=== PATIENT | male | born 1950 | race Caucasian/White ===

== ENCOUNTER → 2017-08-05 | Outpatient (CLI) | payer MEDICARE ==
[2017-08-08 21:43] LABS: Large VLDL Particle Number,NMR <1.5 nmol/L (<=2.7)
== END | disposition home or self-care (01) ==
LOC: LABWHC1 10:24
PROVIDERS: ATTEND Internal Medicine Cardiovascular Disease
DX: I25.10 Atherosclerotic heart disease of native coronary artery without angina pectoris (principal)
CPT/HCPCS: 36415; 83704

== ENCOUNTER → 2019-02-02 | Outpatient (CLI) | payer MEDICARE ==
[2019-02-02 18:16] LABS: ALT 23 U/L (10-49); AST 26 U/L (14-35); Chol/HDL Ratio 2.72; Cholesterol 128 mg/dL (0-200); Triglycerides <50.0 mg/dL (0.0-149.0)
== END | disposition home or self-care (01) ==
LOC: LABWHC1 08:19
PROVIDERS: ATTEND Internal Medicine Cardiovascular Disease
DX: E78.5 Hyperlipidemia, unspecified (principal); I25.10 Atherosclerotic heart disease of native coronary artery without angina pectoris
CPT/HCPCS: 36415; 80061; 84450; 84460

== ENCOUNTER → 2019-12-30 | Outpatient (CLI) | payer MEDICARE ==
[2019-12-30 10:41] LABS: Albumin 4.4 g/dL (3.80-4.90); Albumin/Globulin Ratio 2.93 (1.60-3.17); Bilirubin, Conjugated 0.2 mg/dL (0.20-0.40); Bilirubin,Unconjugated 0.4 mg/dL; Chol/HDL Ratio 2.82; Globulin 1.5 g/dL (1.6-3.3); LDL Cholesterol,Calculated 67.8 mg/dL (0.0-131.0); Total Bilirubin 0.6 mg/dL (0.2-1.2); Total Protein 5.9 g/dL (6.2-8.2); VLDL Calculation 14.2 mg/dL (5.00-40.00)
== END | disposition home or self-care (01) ==
LOC: LABWHC1 07:26
PROVIDERS: ATTEND Internal Medicine Cardiovascular Disease
DX: I25.10 Atherosclerotic heart disease of native coronary artery without angina pectoris (principal); E78.5 Hyperlipidemia, unspecified
CPT/HCPCS: 36415; 80061; 80076

== ENCOUNTER → 2020-07-03 | Outpatient (CLI) | payer MEDICARE ==
[2020-07-03 14:23] LABS: Albumin 4.5 g/dL (3.80-4.90); Albumin/Globulin Ratio 2.81 (1.60-3.17); Bilirubin, Conjugated 0.2 mg/dL (0.20-0.40); Bilirubin,Unconjugated 0.4 mg/dL; Chol/HDL Ratio 2.77; Globulin 1.6 g/dL (1.6-3.3); LDL Cholesterol,Calculated 64.4 mg/dL (0.0-131.0); Total Bilirubin 0.6 mg/dL (0.2-1.2); Total Protein 6.1 g/dL (6.2-8.2); VLDL Calculation 11.6 mg/dL (5.00-40.00)
== END | disposition home or self-care (01) ==
LOC: LABWHC1 07:16
PROVIDERS: ATTEND Internal Medicine Cardiovascular Disease
DX: I25.2 Old myocardial infarction (principal); E78.2 Mixed hyperlipidemia; I25.10 Atherosclerotic heart disease of native coronary artery without angina pectoris
CPT/HCPCS: 36415; 80061; 80076

== ENCOUNTER → 2022-01-10 | Outpatient (CLI) | payer MEDICARE ==
[2022-01-10 10:27] LABS: ALT 28 U/L (10-49); AST 26 U/L (14-35); Chol/HDL Ratio 2.82 Ratio; LDL Cholesterol,Calculated 75.7 mg/dL (0.0-131.0); VLDL Calculation 12.74 mg/dL (5.00-40.00)
== END | disposition home or self-care (01) ==
LOC: LABWHC1 07:06
PROVIDERS: ATTEND Internal Medicine Interventional Cardiology
DX: E78.2 Mixed hyperlipidemia (principal)
CPT/HCPCS: 36415; 80061; 84450; 84460

== ENCOUNTER 2022-11-09 00:49 | Observation (INO) | payer MEDICARE ==
[2022-11-09 01:34] LABS: Basophils % (A) 1 %; Eosinophils # (A) 0.3 k/uL (0-0.7); Eosinophils % (A) 4 %; HGB 16.1 gm/dL (13.0-17.5); Lymphocytes # (A) 2.9 k/uL (1.0-4.8); Lymphocytes % (A) 32 %; MCH 31.3 pg (25.0-35.0); MCHC 32.9 g/dL (31.0-37.0); MCV 95.2 fL (80.0-100.0); Mean Platelet Volume 7.7; Monocytes # (A) 0.7 k/uL (0-1.0); Monocytes % (A) 8 %; Neutrophils # (A) 4.9 k/uL (1.3-7.7); Neutrophils % (A) 53 %; Platelet Count 177 k/uL (150-450); RBC 5.15 m/uL (4.30-5.90); RDW 13.6 % (11.5-15.5); WBC 9.2 k/uL (3.8-10.6)
[2022-11-09 01:43] LABS: ALT 20 U/L (4-49); AST 29 U/L (17-59); African American GFR (CKD) 81 (>60 ml/min/1.73 sqM); Albumin 4.1 g/dL (3.5-5.0); Alkaline Phosphatase 98 U/L (38-126); Anion Gap 6 mmol/L; Blood Urea Nitrogen 13 mg/dL (9-20); Calcium 8.8 mg/dL (8.4-10.2); Carbon Dioxide 31 mmol/L (22-30); Chloride 102 mmol/L (98-107); Glucose 96 mg/dL (74-99); Magnesium 1.9 mg/dL (1.6-2.3); Non-African American GFR(CKD) 70 (>60 ml/min/1.73 sqM); Potassium 4.2 mmol/L (3.5-5.1); Sodium 139 mmol/L (137-145); Total Bilirubin 0.6 mg/dL (0.2-1.3); Total Protein 6.6 g/dL (6.3-8.2)
[2022-11-09 02:11] LABS: Prothrombin Time 10.4 sec (9.0-12.0)
--- NOTE | 2022-11-09 02:21 | ED ---
Chest Pain HPI - General Chief Complaint: Chest Pain Stated Complaint: Chest pain Time Seen by Provider: 11/09/22 01:26 Source: patient Mode of arrival: ambulatory Limitations: no limitations - History of Present Illness Initial Comments: 72-year-old male with past medical history of coronary artery disease who presents to the emergency department reporting left-sided chest pain and arm pain. States that the pain started around 11 PM. Describes as a pressure sensation. States that his pain felt similar to when he had his heart attack in 2015. He did not take anything for the pain but proceeded immediately to the hospital. 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 Pain lasted for hour before it resolved. Denies fevers chills or cough. No lower extremity swelling. No other alleviating, precipitating or modifying factors - Related Data Home Medications Medication Instructions Recorded Confirmed lisinopriL [Zestril] 10 mg PO HS 11/09/22 11/09/22 Previous Rx's Medication Instructions Recorded Aspirin 81 mg PO DAILY chew 08/22/14 Atorvastatin [Lipitor] 80 mg PO HS #30 tab 08/22/14 Metoprolol Tartrate [Lopressor] 25 mg PO BID #60 tab 08/22/14 Allergies Allergy/AdvReac Type Severity Reaction Status Date / Time No Known Allergies Allergy Verified 11/09/22 00:52 Review of Systems ROS Statement: Those systems with pertinent positive or pertinent negative responses have been documented in the HPI. ROS Other: All systems not noted in ROS Statement are negative. Past Medical History Past Medical History: Asthma, COPD, Myocardial Infarction (ID), Pneumonia Additional Past Medical History / Comment(s): 08/19/14 Pt presented to [facility] ER with L lateral upper arm pain with some L sided chest pain that radiated up to L shoulder at times. Pain was worse last nite but pt was in [place] travelling back to [place]. 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 Admitting diagnosis of STEMI. Other HX: low blood sugar. Last Myocardial Infarction Date:: 08/18/14 History of Any Multi-Drug Resistant Organisms: None Reported Past Surgical History: Heart Catheterization With Stent Additional Past Surgical History / Comment(s): 08/19/14 Cardiac cath with stent to mid RCA. Past Anesthesia/Blood Transfusion Reactions: No Reported Reaction Additional Past Anesthesia/Blood Transfusion Reaction / Comment(s): Pt has never had general anesthesia. Date of Last Stent Placement:: 04/21/14 Past Psychological History: No Psychological Hx Reported Smoking Status: Current every day smoker Past Alcohol Use History: Rare Past Drug Use History: None Reported - Past Family History Father Family Medical History: Unable to Obtain Additional Family Medical History / Comment(s): Pt did not know his father. Mother Family Medical History: Unable to Obtain Additional Family Medical History / Comment(s): Pt states his mother when he was 18 yrs old. He does not know any of her health hx or what caused her . Brother(s) Family Medical History: Coronary Artery Disease (CAD) Additional Family Medical History / Comment(s): Pt's youngest brother has had a ID and stenting. General Exam Limitations: no limitations General appearance: alert, in no apparent distress Head exam: Present: atraumatic, normocephalic, normal inspection Eye exam: Present: normal appearance, PERRL, EOMI. Absent: scleral icterus, conjunctival injection, periorbital swelling ENT exam: Present: normal exam, mucous membranes moist Neck exam: Present: normal inspection. Absent: tenderness, meningismus, lymphadenopathy Respiratory exam: Present: normal lung sounds bilaterally. Absent: respiratory distress, wheezes, rales, rhonchi, stridor Cardiovascular Exam: Present: regular rate, normal rhythm, normal heart sounds. Absent: systolic murmur, diastolic murmur, rubs, gallop, clicks GI/Abdominal exam: Present: soft, normal bowel sounds. Absent: distended, tenderness, guarding, rebound, rigid Extremities exam: Present: normal inspection, full ROM, normal capillary refill. Absent: tenderness, pedal edema, joint swelling, calf tenderness Back exam: Present: normal inspection Neurological exam: Present: alert, oriented X3, CN II-XII intact Psychiatric exam: Present: normal affect, normal mood Skin exam: Present: warm, dry, intact, normal color. Absent: rash Course Vital Signs 11/09/22 11/09/22 11/09/22 00:52 03:37 06:00 Temperature 98.1 F Pulse Rate 76 74 62 Respiratory 18 16 16 Rate Blood Pressure 141/84 114/71 120/69 O2 Sat by Pulse 98 99 92 L Oximetry Chest Pain MDM - MDM Was pt. sent in by a medical professional or institution (RAUL Ricardo, ADULT CROSSING GUARD, urgent care, hospital, or halfway...) When possible be specific @ -No Did you speak to anyone other than the patient for history (EMS, parent, family, police, friend...)? What history was obtained from this source @ -I spoke with the patient's daughter Did you review nursing and triage notes (agree or disagree)? Why? @ -I reviewed and agree with nursing and triage notes Were old charts reviewed (outside hosp., previous admission, EMS record, old EKG, old radiological studies, urgent care reports/EKG's, halfway records)? Report findings @ -I reviewed the patient's charts from 2014 when he had his heart attack Differential Diagnosis (chest pain, altered mental status, abdominal pain women, abdominal pain men, vaginal bleeding, weakness, fever, dyspnea, syncope, headache, dizziness, GI bleed, back pain, seizure, CVA, palpatations, mental health, musculoskeletal)? @ -Differential Chest Pain: Stable Angina, Unstable Angina, STEMI, NSTEMI Aortic Dissection, Pneumothorax, Musculoskeletal, Esophageal Spasm GERD, Cholecystitis, Pancreatitis, Zoster, this is not meant to be an all-inclusive list. EKG interpreted by me (3pts min.). @ -Yes and demonstrates sinus rhythm with a rate of 73. WA interval 181. QRS 11. QTC of 408. No acute ST segment elevations or depressions X-rays interpreted by me (1pt min.). @ -Yes and demonstrates no acute process CT interpreted by me (1pt min.). @ -None done U/S interpreted by me (1pt. min.). @ -None done What testing was considered but not performed or refused? (CT, X-rays, U/S, labs)? Why? @ -None What meds were considered but not given or refused? Why? @ -None Did you discuss the management of the patient with other professionals (professionals i.e. RAUL Ricardo, ADULT CROSSING GUARD, lab, RT, psych nurse, protective services social worker, private duty lpn, teacher, chief investment officer, dependency case manager)? Give summary @ -Spoke with Patricia who agreed to admit the patient Was smoking cessation discussed for >3mins.? @ -No Was critical care preformed (if so, how long)? @ -No Were there social determinants of health that impacted care today? How? (Homelessness, low income, unemployed, alcoholism, drug addiction, transportation, low edu. Level, literacy, decrease access to med. care, penitentiary, rehab)? @ -No Was there de-escalation of care discussed even if they declined (Discuss DNR or withdrawal of care, Hospice)? DNR status @ -No What co-morbidities impacted this encounter? (DM, HTN, Smoking, COPD, CAD, Cancer, CVA, ARF, Chemo, Hep., AIDS, mental health diagnosis, sleep apnea, morbid obesity)? @ -Coronary artery disease Was patient admitted / discharged? Hospital course, mention meds given and route, prescriptions, significant lab abnormalities, going to OR and other pertinent info. @ -Upon arrival patient was placed into room 5. Thorough history and physical exam was performed. Laboratory studies are conducted. Chest x-ray was performed. 12-lead EKG was completed. Troponin negative. 12-lead EKG unremarkable. Recommended admission due to history of coronary disease for which the patient was agreeable. Spoke with Patricia from [facility] who agreed to admit the patient Undiagnosed new problem with uncertain prognosis? @ -Yes Drug Therapy requiring intensive monitoring for toxicity (Heparin, Nitro, Insulin, Cardizem)? @ -No Were any procedures done? @ -No Diagnosis/symptom? @ -Acute chest pain, possible ACS Acute, or Chronic, or Acute on Chronic? @ -Acute Uncomplicated (without systemic symptoms) or Complicated (systemic symptoms)? @ -Complicated Side effects of treatment? @ -No Exacerbation, Progression, or Severe Exacerbation? @ -No Poses a threat to life or bodily function? How? (Chest pain, USA, ID, pneumonia, PE, COPD, DKA, ARF, appy, cholecystitis, CVA, Diverticulitis, Homicidal, Suicidal, threat to staff... and all critical care pts) @ -Yes patient has chest pain which may indicate acute coronary event Disposition Clinical Impression: Chest pain Disposition: ADMITTED IP TO THIS [facility] Condition: Serious Is patient prescribed a controlled substance at d/c from ED?: No Time of Disposition: :34 Decision to Admit Reason: Admit from EC Decision Date: 11/09/22 Decision Time: :34
--- NOTE | 2022-11-09 02:35 | XR ---
EXAM: XR Chest, 2 Views CLINICAL HISTORY: ITS.REASON XR Reason: Chest Pain TECHNIQUE: Frontal and lateral views of the chest. COMPARISON: No relevant prior studies available. FINDINGS: Lungs: Unremarkable. No consolidation. Pleural space: Unremarkable. No pneumothorax. No pleural effusions. Heart: Unremarkable. No cardiomegaly. Mediastinum: Unremarkable. Bones/joints: No acute osseous abnormalities. IMPRESSION: Normal chest.
[2022-11-09] MEDS ORDERED: ASPIRIN 81 MG PO STA (03:21)
[2022-11-09] MEDS ORDERED: NALOXONE 0.4 MG/ML 1 ML VIAL IV PRN (03:35)
[2022-11-09 03:38] VITALS: RESP 16
[2022-11-09] MEDS ORDERED: AMINOPHYLLINE 500 MG/20 ML VIAL IV PRN (08:42)
[2022-11-09] MEDS ORDERED: REGADENOSON 0.4 MG/5 ML SYRINGE IV PRN (08:42)
[2022-11-09] MEDS ORDERED: CAFFEINE CITRATE 60 MG/3 ML VIAL IV PRN (08:42)
[2022-11-09] MEDS ORDERED: ASPIRIN 81 MG PO SCH (09:00)
[2022-11-09] MEDS ORDERED: METOPROLOL TARTRATE 25 MG TAB PO SCH (09:00)
--- NOTE | 2022-11-09 10:19 | P.CRDCN ---
History of Present Illness History of present illness: HISTORY OF PRESENT ILLNESS: This is a 72-year-old male with a past medical history significant for coronary artery disease with previous stenting of the RCA, hypertension, hyperlipidemia, COPD, nicotine dependence. Patient follows in the office with Dr. Monroy. We have been asked to see the patient in consultation for chest pain. Patient examined at the bedside. Patient states yesterday he woke up around 11:00 and he was having pain in his left arm. He states he was not having any chest pain at that time. He also denies having any chest pain at the time of examination. He states the pain in his left arm was worse with movement but states the pain is now gone. He states the pain was not worse with deep inspiration. He reports having any shortness of breath. He does report a cough which she states is his baseline due to his COPD. He is a current serum smoker and smokes at least one pack per day. He states his symptoms are somewhat similar to when he had his stenting in the past but at that time he had chest pain and this time he denies having any chest pain or discomfort. * EKG reveals sinus mechanism with no signs of acute ischemia. * Chest xray negative for acute process * Laboratory data: WBC 9.2. Hemoglobin 16.1. Platelet count 177. Sodium 139. Potassium 4.2. Troponin negative 2. * Current home cardiac medications include aspirin 81 mg daily, Lipitor 80 mg at night, metoprolol tartrate 25 mg twice a day, and lisinopril 10 mg at night * Most recent echocardiogram obtained in August 2014 revealed ejection fraction 35- 40%, trace to mild MR, trace TR * Cardiac catheterization history: August 2014 with stenting of the RCA * Patient underwent Lexiscan stress testing n December 2020 which was negative for inducible ischemia REVIEW OF SYSTEMS: At the time of my exam: CONSTITUTIONAL: Denies fever or chills. HEENT: Denies blurred vision, vision changes, or eye pain. Denies hemoptysis CARDIOVASCULAR: Denies chest pain. Denies orthopnea. Denies PND. Denies palpitations RESPIRATORY: Denies shortness of breath. GASTROINTESTINAL: Denies abdominal pain. Denies nausea or vomiting. HEMATOLOGIC: Denies bleeding disorders. GENITOURINARY: Denies any blood in urine. SKIN: Denies pruitis. Denies rash. PHYSICAL EXAM: VITAL SIGNS: Reviewed. GENERAL: Well-developed in no acute distress. HEENT: Head is normocephalic. Pupils are equal, round. Sclerae anicteric. Mucous membranes of the mouth are moist. Neck supple. No JVD or thyromegaly LUNGS: Respirations even and unlabored. Lungs diminished with expiratory wheezing throughout, greater in upper lobes HEART: Regular rate and rhythm. S1 and S2 heard. ABDOMEN: Soft. Nondistended. Nontender. EXTREMITIES: Normal range of motion. No clubbing or cyanosis. Peripheral pulses intact. No lower extremity edema NEUROLOGIC: Awake and alert. Oriented x 3. ASSESSMENT: Left arm pain Coronary artery disease with previous stenting of the RCA, 2014 History of ischemic cardiomyopathy, ejection fraction 35-40% in 2014, with recovered EF most recent 50% in 2020 Hypertension Hyperlipidemia COPD Nicotine dependence, patient smokes 1 pack per day PLAN: An acute coronary event has been ruled out Obtain 2-D echo to assess cardiac structure and function Resume home cardiac medications Smoking cessation recommended Patient to undergo Lexiscan stress test today Further recommendations pending patient's course Nurse practitioner note has been reviewed by physician. Signing provider agrees with the documented findings, assessment, and plan of care. Past Medical History Past Medical History: Asthma, COPD, Myocardial Infarction (NC), Pneumonia Additional Past Medical History / Comment(s): 08/19/14 Pt presented to [facility] ER with L lateral upper arm pain with some L sided chest pain that radiated up to L shoulder at times. Pain was worse last nite but pt was in [place] travelling back to [place]. 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 Admitting diagnosis of STEMI. Other HX: low blood sugar. Last Myocardial Infarction Date:: 08/18/14 History of Any Multi-Drug Resistant Organisms: None Reported Past Surgical History: Heart Catheterization With Stent Additional Past Surgical History / Comment(s): 08/19/14 Cardiac cath with stent to mid RCA. Past Anesthesia/Blood Transfusion Reactions: No Reported Reaction Additional Past Anesthesia/Blood Transfusion Reaction / Comment(s): Pt has never had general anesthesia. Date of Last Stent Placement:: 04/21/14 Past Psychological History: No Psychological Hx Reported Smoking Status: Current every day smoker Past Alcohol Use History: Rare Past Drug Use History: None Reported - Past Family History Father Family Medical History: Unable to Obtain Additional Family Medical History / Comment(s): Pt did not know his father. Mother Family Medical History: Unable to Obtain Additional Family Medical History / Comment(s): Pt states his mother when he was 18 yrs old. He does not know any of her health hx or what caused her . Brother(s) Family Medical History: Coronary Artery Disease (CAD) Additional Family Medical History / Comment(s): Pt's youngest brother has had a NC and stenting. Medications and Allergies Home Medications Medication Instructions Recorded Confirmed Type Aspirin 81 mg PO DAILY chew 08/22/14 11/09/22 Rx Atorvastatin [Lipitor] 80 mg PO HS #30 tab 08/22/14 11/09/22 Rx Metoprolol Tartrate [Lopressor] 25 mg PO BID #60 tab 08/22/14 11/09/22 Rx lisinopriL [Zestril] 10 mg PO HS 11/09/22 11/09/22 History Allergies Allergy/AdvReac Type Severity Reaction Status Date / Time No Known Allergies Allergy Verified 11/09/22 00:52 Physical Exam Vitals: Vital Signs Temp Pulse Resp BP Pulse Ox 11/09/22 06:00 62 16 120/69 92 L 11/09/22 03:37 74 16 114/71 99 11/09/22 00:52 98.1 F 76 18 141/84 98 Intake and Output 11/08/22 11/09/22 11/09/22 22:59 06:59 14:59 Other: Weight 81.647 kg Results 11/09/22 01:19 11/09/22 01:19 Cardiac Enzymes 11/09/22 11/09/22 11/09/22 Range/Units 01:19 01:19 05:20 AST 29 (17-59) U/L Troponin I <0.012 <0.012 (0.000-0.034) ng/mL Coagulation 11/09/22 Range/Units 01:19 PT 10.4 (9.0-12.0) sec APTT 24.0 (22.0-30.0) sec CBC 11/09/22 Range/Units 01:19 WBC 9.2 (3.8-10.6) k/uL RBC 5.15 (4.30-5.90) m/uL Hgb 16.1 (13.0-17.5) gm/dL Hct 49.0 (39.0-53.0) % Plt Count 177 (150-450) k/uL Comprehensive Metabolic Panel 11/09/22 Range/Units 01:19 Sodium 139 (137-145) mmol/L Potassium 4.2 (3.5-5.1) mmol/L Chloride 102 (98-107) mmol/L Carbon Dioxide 31 H (22-30) mmol/L BUN 13 (9-20) mg/dL Creatinine 1.07 (0.66-1.25) mg/dL Glucose 96 (74-99) mg/dL Calcium 8.8 (8.4-10.2) mg/dL AST 29 (17-59) U/L ALT 20 (4-49) U/L Alkaline Phosphatase 98 (38-126) U/L Total Protein 6.6 (6.3-8.2) g/dL Albumin 4.1 (3.5-5.0) g/dL Current Medications Generic Name Dose Route Start Last Admin Trade Name Freq PRN Reason Stop Dose Admin Naloxone HCl 0.2 mg 11/09/22 03:35 Naloxone 0.4 Mg/Ml 1 Ml Vial IV Q2M PRN Opioid Reversal Intake and Output 11/08/22 11/09/22 11/09/22 22:59 06:59 14:59 Other: Weight 81.647 kg 11/09/22 01:19 11/09/22 01:19
--- NOTE | 2022-11-09 12:31 | NM ---
EXAMINATION TYPE: NM stress lexiscan cardiolite DATE OF EXAM: 11/09/2022 COMPARISON: NONE CLINICAL INDICATION: Male, 72 years old with history of CP; TECHNIQUE: After the intravenous administration of 10.2 mCi Tc 99m Sestamibi - Cardiolite resting SP ECT images acquired 60 minutes post injection. The patient received 0.4mg Lexiscan, 25.3 mCi Tc 99m Sestamibi - Stress images obtained [address] injection FINDINGS: Review of stress and rest SPECT images demonstrates small fixed defect involving the apex and inferio r wall of the myocardium somewhat which may be artifactual. Correlate for history of remote ischemia. Gated analysis shows normal wall motion with an estimated left ventricular ejection fraction of 55 %. IMPRESSION: No scintigraphic evidence for reversible ischemia. See above.
--- NOTE | 2022-11-09 12:32 | CA ---
Lexiscan Nuclear Stress Test Report Name: Kiran Paulson Exam Date: 11/09/2022 11:03 Exam Location: [facility] Stress Ht (in): 66 Wt (lb): 180 BSA: 1.91 Ordering Phys: Sally Joe Referring Phys: MELO, Technologist: Krunal Antoine Age: 72 Gender: M : 1950 Procedure CPT: Indications: Reflex order-Stress test ICD-10 Codes: Patient History: CHEST PAIN, HTN, ELEVATED CHOLESTEROL LEVELS, FAMILY HX OF HEART DISEASE, CURRENT SMOKER 1 PPD X 55 YRS, PRIOR CATH WITH ONE STENT, COPD Medications: Meds past 24 hrs: Pretest Chest Pain: STRESS TEST Lexiscan Protocol Exercise Duration (min:sec): 02:[address] Depressions (mm): Angina Score: Crockett Score: Resting HR (bpm): 63 Peak HR (bpm): 93 Resting BP (mmHg): 136 / 81 Peak BP (mmHg): 150 / 82 MPHR: 149 Target HR: 127 % MPHR: 62 METS: 1.0 Total Dose: Peak Dose: Atropine: Double Product: 29730 BP Response: Stress Termination: INFUSION COMPLETE Stress Symptoms: NO SYMPTOMS Stress Summary: ECG ANALYSIS Resting ECG: Sinus rhythm. Normal conduction. No arrhythmias. Normal repolarization. Stress ECG: No ECG changes from baseline with Lexiscan infusion. CONCLUSIONS No ECG evidence of ischemia with Lexiscan infusion. Nuclear test results to follow. Dr. Venita Corona MD (Electronically Signed) Final Date: 09 November 2022 12:31
[2022-11-09 12:42] VITALS: BP 125/72; PULSE 64; TEMP 98.1
--- NOTE | 2022-11-09 15:42 | P.HPIM ---
History of Present Illness H&P Date: 11/09/22 This is a 72-year-old male with medical history of asthma, COPD, myocardial infarction with prior cardiac stenting most recently in 2014. Patient is a current every day smoker at least one pack per day for the last 60 years. He presents to hospital with complaints of left-sided arm pain that starts from 11 PM in the evening described as a pressure-like sensation ER for further evaluation pain is currently resolved at this time. States the pain awoke him from sleep. Patient has no associated symptoms, no shortness of breath, no chest pain, no nausea/vomiting or diarrrhea. He does report that this pain feels similar to the SC he had prior. Chest x-ray was completed which shows no acute findings. EKG reveals normal sinus rhythm with no ST or T-wave changes. Heart rate is 73. Troponin level has been negative 2 blood count is completely unremarkable electrolytes are within normal limits. Patient is admitted to the hospital under medicine with a consultation placed to cardiology services. Patient is scheduled to undergo a Lexiscan stress test today. Patient does report he was out weeding his garden earlier in the day and usually he doesn't do that he does have some discomfort with full rotation of the left shoulder. REVIEW OF SYSTEMS: CONSTITUTIONAL: No fever, no malaise, no fatigue. HEENT: No recent visual problems or hearing problems. Denied any sore throat. CARDIOVASCULAR: No chest pain, orthopnea, PND, no palpitations, no syncope. PULMONARY: No shortness of breath, no cough, no hemoptysis. GASTROINTESTINAL: No diarrhea, no nausea, no vomiting, no abdominal pain. NEUROLOGICAL: No headaches, no weakness, no numbness. HEMATOLOGICAL: Denies any bleeding or petechiae. GENITOURINARY: Denies any burning micturition, frequency, or urgency. MUSCULOSKELETAL/RHEUMATOLOGICAL: Denies any joint pain, swelling, or any muscle pain. ENDOCRINE: Denies any polyuria or polydipsia. The rest of the 14-point review of systems is negative. PHYSICAL EXAMINATION: GENERAL: The patient is alert and oriented x3, not in any acute distress. Well developed, well nourished. HEENT: Pupils are round and equally reacting to light. EOMI. No scleral icterus. No conjunctival pallor. Normocephalic, atraumatic. No pharyngeal erythema. No thyromegaly. CARDIOVASCULAR: S1 and S2 present. No murmurs, rubs, or gallops. PULMONARY: Chest is clear to auscultation, no wheezing or crackles. ABDOMEN: Soft, nontender, nondistended, normoactive bowel sounds. No palpable organomegaly. MUSCULOSKELETAL: No joint swelling or deformity. EXTREMITIES: No cyanosis, clubbing, or pedal edema. NEUROLOGICAL: Gross neurological examination did not reveal any focal deficits. SKIN: No rashes. Assessment and plan Left-sided arm pain and possibly chest pain atypical acute coronary syndrome has ruled out patient had a negative Lexiscan chest test shows no signs of reversible ischemia. This is likely musculoskeletal in nature as patient does have some limited range of motion mild in nature likely be self limiting and recommending to just rest the arm for a couple days. History of myocardial infarction with prior cardiac stenting back in 2014 History of COPD and chronic nicotine use patient is a one pack per day smoker History of asthma there is no acute exacerbation GI prophylaxis Full code Patient is discharged home he has been cleared by cardiology recommending to follow up in the office with his usual emergency vehicle technician 1-2 weeks and follow-up with PCP 1-2 days. He was counseled extensively on smoking cessation patient this time does not wish for any further education/denies nicotine patch. The impression and plan of care has been dictated by Bernadette Andres, Nurse Practitioner as directed. Dr. Dmitry MD I have performed a history and physical examination and medical decision making of this patient, discussed the same with the dictator, and agree with the dictators assessment and plan as written, documented as a scribe. Based on total visit time, I have performed more than 50% of this visit. Past Medical History Past Medical History: Asthma, COPD, Myocardial Infarction (SC), Pneumonia Additional Past Medical History / Comment(s): 08/19/14 Pt presented to [facility] ER with L lateral upper arm pain with some L sided chest pain that radiated up to L shoulder at times. Pain was worse last nite but pt was in [place] travelling back to [place]. 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 Admitting diagnosis of STEMI. Other HX: low blood sugar. Last Myocardial Infarction Date:: 08/18/14 History of Any Multi-Drug Resistant Organisms: None Reported Past Surgical History: Heart Catheterization With Stent Additional Past Surgical History / Comment(s): 08/19/14 Cardiac cath with stent to mid RCA. Past Anesthesia/Blood Transfusion Reactions: No Reported Reaction Additional Past Anesthesia/Blood Transfusion Reaction / Comment(s): Pt has never had general anesthesia. Date of Last Stent Placement:: 04/21/14 Past Psychological History: No Psychological Hx Reported Smoking Status: Current every day smoker Past Alcohol Use History: Rare Past Drug Use History: None Reported - Past Family History Father Family Medical History: Unable to Obtain Additional Family Medical History / Comment(s): Pt did not know his father. Mother Family Medical History: Unable to Obtain Additional Family Medical History / Comment(s): Pt states his mother when he was 18 yrs old. He does not know any of her health hx or what caused her . Brother(s) Family Medical History: Coronary Artery Disease (CAD) Additional Family Medical History / Comment(s): Pt's youngest brother has had a SC and stenting. Medications and Allergies Home Medications Medication Instructions Recorded Confirmed Type Aspirin 81 mg PO DAILY chew 08/22/14 11/09/22 Rx Atorvastatin [Lipitor] 80 mg PO HS #30 tab 08/22/14 11/09/22 Rx Metoprolol Tartrate [Lopressor] 25 mg PO BID #60 tab 08/22/14 11/09/22 Rx Albuterol Inhaler [Ventolin Hfa 1 - 2 puff INHALATION Q6H PRN #1 11/09/22 Rx Inhaler] each lisinopriL [Zestril] 10 mg PO HS 11/09/22 11/09/22 History Allergies Allergy/AdvReac Type Severity Reaction Status Date / Time No Known Allergies Allergy Verified 11/09/22 00:52 Physical Exam Vitals: Vital Signs Temp Pulse Pulse Resp BP BP Pulse Ox 11/09/22 07:00 97.8 F 83 16 140/75 93 L 11/09/22 06:00 62 16 120/69 92 L 11/09/22 03:37 74 16 114/71 99 11/09/22 00:52 98.1 F 76 18 141/84 98 Intake and Output 11/08/22 11/09/22 11/09/22 22:59 06:59 14:59 Other: Weight 81.647 kg Results CBC & Chem 7: 11/09/22 01:19 11/09/22 01:19 Labs: Abnormal Lab Results - Last 24 Hours (Table) 11/09/22 Range/Units 01:19 Carbon Dioxide 31 H (22-30) mmol/L Assessment and Plan Time with Patient: Less than 30
--- NOTE | 2022-11-09 15:45 | P.DS ---
Providers Date of admission: 11/09/22 03:35 Attending physician: Isa Foster Consults: 11/09/22 03:35 Consult Physician Urgent Consulting Provider: [facility] Consult Reason/Comments: acute chest pain, hx ascad Do you want consulting provider notified?: Yes Primary care physician: Rosalio Grajeda Hospital Course: Final Diagnosis Left-sided arm pain and possibly chest pain atypical acute coronary syndrome has ruled out patient had a negative Lexiscan chest test shows no signs of reversible ischemia. This is likely musculoskeletal in nature as patient does have some limited range of motion mild in nature likely be self limiting and recommending to just rest the arm for a couple days. History of myocardial infarction with prior cardiac stenting back in 2014 History of COPD and chronic nicotine use patient is a one pack per day smoker History of asthma there is no acute exacerbation Full Code Discharge Disposition Patient is stable for discharge home recommending to see his usual room cleaner in 1-2 weeks and also to follow up with his PCP 1-[address] Hui milian in the office. He is sent in albuterol inhaler as needed use for his COPD for any shots of breath or wheezing and he is counseled extensively on smoking cessation. Hospital Course This is a 72-year-old male with medical history of asthma, COPD, myocardial infarction with prior cardiac stenting most recently in 2014. Patient is a current every day smoker at least one pack per day for the last 60 years. He presents to hospital with complaints of left-sided arm pain that starts from 11 PM in the evening described as a pressure-like sensation ER for further evaluation pain is currently resolved at this time. States the pain awoke him from sleep. Patient has no associated symptoms, no shortness of breath, no chest pain, no nausea/vomiting or diarrrhea. He does report that this pain feels similar to the DC he had prior. Chest x-ray was completed which shows no acute findings. EKG reveals normal sinus rhythm with no ST or T-wave changes. Heart rate is 73. Troponin level has been negative 2 blood count is completely unremarkable electrolytes are within normal limits. Patient is admitted to the hospital under medicine with a consultation placed to cardiology services. Patient does report he was out weeding his garden earlier in the day and usually he doesn't do that he does have some discomfort with full rotation of the left shoulder. Patient underwent Lexiscan stress test which was negative for any signs of reversible ischemia and has been cleared by cardiology for discharge she is currently symptom-free at this time and denies any chest pain. His lungs are clear, S1-S2 is auscultated, abdomen is soft and nontender focal neurological exam is negative. Please see medication reconciliation for a list of current medications. Thank you for allowing us to participate in this patient. The impression and plan of care has been dictated by Bernadette Andres, Nurse Practitioner as directed. Dr. Dmitry MD I have performed a history and physical examination and medical decision making of this patient, discussed the same with the dictator, and agree with the dictators assessment and plan as written, documented as a scribe. Based on total visit time, I have performed more than 50% of this visit. Patient Condition at Discharge: Stable Plan - Discharge Summary New Discharge Prescriptions: New Albuterol Inhaler [Ventolin Hfa Inhaler] 1 - 2 puff INHALATION Q6H PRN #1 each PRN Reason: Shortness Of Breath Or Wheezing Continue Aspirin 81 mg PO DAILY chew Atorvastatin [Lipitor] 80 mg PO HS #30 tab Metoprolol Tartrate [Lopressor] 25 mg PO BID #60 tab lisinopriL [Zestril] 10 mg PO HS Discharge Medication List Aspirin 81 mg PO DAILY chew 08/22/14 [Rx] Atorvastatin [Lipitor] 80 mg PO HS #30 tab 08/22/14 [Rx] Metoprolol Tartrate [Lopressor] 25 mg PO BID #60 tab 08/22/14 [Rx] Albuterol Inhaler [Ventolin Hfa Inhaler] 1 - 2 puff INHALATION Q6H PRN #1 each 11/09/22 [Rx] lisinopriL [Zestril] 10 mg PO HS 11/09/22 [History] Follow up Appointment(s)/Referral(s): Venita Corona MD [STAFF PHYSICIAN] - 1 Week Rosalio Grajeda DO [Primary Care Provider] - 1-2 days Discharge Disposition: HOME SELF-CARE
[2022-11-09] MEDS ORDERED: ATORVASTATIN 80 MG TAB PO SCH (21:00)
[2022-11-09] MEDS ORDERED: lisinopriL 10 MG TAB PO SCH (21:00)
[2022-11-10] MEDS ORDERED: PANTOPRAZOLE 40 MG TABLET PO SCH (07:30)
--- NOTE | 2022-11-10 07:32 | CA ---
Transthoracic Echo Report Name: Kiran Paulson Age: 72 Gender: M : 1950 Exam Date: 11/09/2022 11:31 Exam Location: [facility] Ht (in): 66 Wt (lb): 180 Ordering Physician: Sally Joe Attending/Referring Phys: [id number], [employer] Changer Flor Christina RDCS Procedure CPT: Indications: LV function Cardiac Hx: Technical Quality: Technically difficult study Contrast 1: Lumason Total Dose (mL): 4 Contrast 2: Total Dose (mL): MEASUREMENTS (Male / Female) Normal Values 2D ECHO LV Diastolic Diameter PLAX 4.3 cm 4.2 - 5.9 / 3.9 - 5.3 cm LV Systolic Diameter PLAX 3.0 cm IVS Diastolic Thickness 1.1 cm 0.6 - 1.0 / 0.6 - 0.9 cm LVPW Diastolic Thickness 1.1 cm 0.6 - 1.0 / 0.6 - 0.9 cm LV Relative Wall Thickness 0.5 RV Internal Dim ED PLAX 3.6 cm LA Volume 22.0 cm??? 18 - 58 / 22 - 52 cm??? M-MODE Aortic Root Diameter MM 2.8 cm LA Systolic Diameter MM 3.9 cm LA Ao Ratio MM 1.4 AV Cusp Separation MM 1.6 cm DOPPLER AV Peak Velocity 126.9 cm/s AV Peak Gradient 6.4 mmHg AV Mean Velocity 81.7 cm/s AV Mean Gradient 3.1 mmHg AV Velocity Time Integral 27.1 cm LVOT Peak Velocity 100.4 cm/s LVOT Peak Gradient 4.0 mmHg LVOT Velocity Time Integral 22.1 cm MV Area PHT 4.1 cm??? Mitral E Point Velocity 75.2 cm/s Mitral A Point Velocity 102.5 cm/s Mitral E to A Ratio 0.7 MV Deceleration Time 187.0 ms MV E' Velocity 5.0 cm/s Mitral E to MV E' Ratio 15.0 TR Peak Velocity 261.1 cm/s TR Peak Gradient 27.3 mmHg Right Ventricular Systolic Press 32.1 mmHg FINDINGS Left Ventricle Mildly increased left ventricular wall thickness. Left ventricular cavity size normal. Normal left ventricular systolic function with no obvious regional wall motion abnormalities. Left ventricular ejection fraction is estimated at 55-60 %. Right Ventricle Mild right ventricular dilatation. Right ventricular systolic pressure within normal limits. Right Atrium Normal right atrial size. Left Atrium Normal left atrial size. Mitral Valve Structurally normal mitral valve. No mitral stenosis, or prolapse. Trace mitral regurgitation Aortic Valve No aortic valve stenosis or regurgitation. Aortic valve sclerosis. Tricuspid Valve Structurally normal tricuspid valve. Trace to mild tricuspid regurgitation. Pulmonic Valve Pulmonic valve not well visualized. Pericardium No pericardial effusion.echo free space anterior to the right ventricle likely represents a fat pad. Aorta Normal size aortic root and proximal ascending aorta. CONCLUSIONS 1. Normal left ventricle size and systolic function 2. Trace mitral with trace to mild tricuspid regurgitation Previewed by: Dr. Venita Corona MD (Electronically Signed) Final Date: 10 November 2022 07:31
== END 2022-11-09 16:10 | disposition home or self-care (01) ==
LOC: EC 00:49 → 6NMEDSUR 03:35
PROVIDERS: ADMIT Hospitalist; ATTEND Hospitalist
DX: M79.602 Pain in left arm (principal); I25.10 Atherosclerotic heart disease of native coronary artery without angina pectoris; I25.5 Ischemic cardiomyopathy; E78.5 Hyperlipidemia, unspecified; I07.1 Rheumatic tricuspid insufficiency; I10 Essential (primary) hypertension; J44.9 Chronic obstructive pulmonary disease, unspecified; F17.210 Nicotine dependence, cigarettes, uncomplicated; I25.2 Old myocardial infarction; Z79.82 Long term (current) use of aspirin; Z79.899 Other long term (current) drug therapy; Z95.5 Presence of coronary angioplasty implant and graft; Z87.01 Personal history of pneumonia (recurrent); Z82.49 Family history of ischemic heart disease and other diseases of the circulatory system; Z71.6 Tobacco abuse counseling
CPT/HCPCS: 99285; 36415; 93005; 93017; 93306; 80053; 83735; 84484; 85025; 85610; 85730; 71046; 78452; G0378; A9500; J2785; Q9950

== ENCOUNTER → 2023-07-18 | Outpatient (CLI) | payer MEDICARE ==
[2023-07-18 11:00] LABS: ALT 22 U/L (10-49); AST 23 U/L (14-35); Chol/HDL Ratio 2.83 Ratio; LDL Cholesterol,Calculated 72.7 mg/dL (0.0-131.0); VLDL Calculation 18.54 mg/dL (5.00-40.00)
== END | disposition home or self-care (01) ==
LOC: LABWHC1 07:10
PROVIDERS: ATTEND Internal Medicine Cardiovascular Disease
DX: E78.2 Mixed hyperlipidemia (principal)
CPT/HCPCS: 36415; 80061; 84450; 84460

== ENCOUNTER → 2024-06-24 | Outpatient (CLI) | payer MEDICARE ==
[2024-06-24 15:00] LABS: ALT 31 U/L (10-49); AST 31 U/L (14-35); LDL Cholesterol,Calculated 47.9 mg/dL (0.0-131.0); VLDL Calculation 14.32 mg/dL (5.00-40.00)
== END | disposition home or self-care (01) ==
LOC: LABWHC1 09:41
PROVIDERS: ATTEND Internal Medicine Cardiovascular Disease
DX: E78.2 Mixed hyperlipidemia (principal)
CPT/HCPCS: 36415; 80061; 84450; 84460